=== PATIENT | male | born 1965 | race Caucasian/White ===

== ENCOUNTER 2021-06-21 10:51 | Inpatient (IN) | payer OTHER ==
[2021-06-21] MEDS ORDERED: METHOCARBAMOL 500 MG TABLET PO PRN (11:37)
[2021-06-21] MEDS ORDERED: LORazepam 1 MG TABLET PO PRN (11:37)
[2021-06-21] MEDS ORDERED: MAGNESIUM CITRATE 300 ML BOTTLE PO PRN (11:37)
[2021-06-21] MEDS ORDERED: ACETAMINOPHEN 325 MG TABLET (FP) PO PRN ×2 (11:37)
[2021-06-21] MEDS ORDERED: BISMUTH SUBSALICYLATE 262 MG/15 ML BTL PO PRN (11:37)
[2021-06-21] MEDS ORDERED: MAG HYDROX/AL HYDROX/SIMETH 30 ML UNIT-DOSE CUP PO PRN (11:37)
[2021-06-21] MEDS ORDERED: MENTHOL/PHENOL 1 EACH UD MM PRN (11:37)
[2021-06-21] MEDS ORDERED: ONDANSETRON *ODT* 4 MG TABLET SL PRN (11:37)
[2021-06-21] MEDS ORDERED: IBUPROFEN 400 MG TABLET (FP) PO PRN (11:37)
[2021-06-21] MEDS ORDERED: LOPERAMIDE HCL 2 MG CAPSULE PO PRN (11:37)
[2021-06-21] MEDS ORDERED: MAGNESIUM HYDROX 2400MG/30ML ORAL SUSPENSION 30 ML CUP PO PRN (11:37)
[2021-06-21] MEDS ORDERED: NICOTINE 10 MG CARTRIDGE (INHALER) IH PRN (11:37)
[2021-06-21] MEDS ORDERED: NICOTINE 14 MG/24 HOURS TOPICAL PATCH TD SCH (11:45)
[2021-06-21] MEDS ORDERED: PRENATAL VITAMINS W/ FOLIC ACID TABLET (FP) PO SCH (11:45)
[2021-06-21 11:58] VITALS: BMI 19.7
[2021-06-21] MEDS: LORazepam 2 MG TABLET PO SCH ×3 (12:59→23:52)
[2021-06-21 13:42] LABS: HEMATOCRIT 37.2 % (35.4-49); HEMOGLOBIN 12.4 GM/dL (11.7-16.9); MCH 31.6 pg (25.7-33.7); MCHC 33.4 g/dl (32.0-35.9); MEAN CELL VOLUME 94.5 fl (80-96); PLATELET COUNT 150 10^3/uL (134-434); RBC 3.93 M/mm3 (4.00-5.60); RDW 12.5 % (11.9-15.9); WHITE BLOOD COUNT 4.5 K/mm3 (4.0-10.0)
[2021-06-21] MEDS: hydrOXYzine PAMOATE 25 MG CAPSULE (FP) PO SCH ×3 (13:46→23:20)
[2021-06-21 13:57] LABS: ALBUMIN 3.7 g/dl (3.4-5.0)
[2021-06-21 13:58] LABS: BLOOD UREA NITROGEN 10.1 mg/dL (7-18)
[2021-06-21 13:59] LABS: CALCIUM 9.6 mg/dL (8.5-10.1)
[2021-06-21 14:02] LABS: TOT PROT 8.2 g/dl (6.4-8.2)
[2021-06-21 14:05] LABS: BILIRUBIN,TOTAL 0.6 mg/dL (0.2-1)
[2021-06-21] MEDS ORDERED: COLLOIDAL OATMEAL 1 BAR EACH TP PRN (17:22)
[2021-06-21] MEDS ORDERED: KETOCONAZOLE 2 % SHAMPOO 120 ML BOTTLE TP SCH (17:30)
[2021-06-21 21:14] VITALS: BP 118/76; PULSE 83; TEMP 98.6
[2021-06-21] MEDS ORDERED: THIAMINE HCL 100 MG TABLET (FP) PO SCH (22:00)
[2021-06-21] MEDS ORDERED: MELATONIN 5 MG TABLETS PO SCH (22:00)
[2021-06-23] MEDS ORDERED: LORazepam 1 MG TABLET PO SCH (05:00)
[2021-06-24] MEDS ORDERED: LORazepam 0.5 MG TABLET PO PRN
[2021-06-24] MEDS ORDERED: LORazepam 0.5 MG TABLET PO SCH (05:00)
[2021-06-25] MEDS ORDERED: LORazepam 0.5 MG TABLET PO ONE (05:00)
== END 2021-06-22 01:48 | disposition left against medical advice (07) | DRG 770 ==
LOC: YASAS 10:51 → Y6N 12:14
PROVIDERS: ADMIT Allergy & Immunology; ATTEND Allergy & Immunology
PROC: HZ2ZZZZ Detoxification Services for Substance Abuse Treatment (ICD-10-PCS; principal; 2021-06-21)
DX: F10.230 Alcohol dependence with withdrawal, uncomplicated (principal); F14.20 Cocaine dependence, uncomplicated; F12.20 Cannabis dependence, uncomplicated; F17.210 Nicotine dependence, cigarettes, uncomplicated; F31.9 Bipolar disorder, unspecified; F20.9 Schizophrenia, unspecified; Z21 Asymptomatic human immunodeficiency virus [HIV] infection status; I10 Essential (primary) hypertension; K76.0 Fatty (change of) liver, not elsewhere classified; Z86.19 Personal history of other infectious and parasitic diseases; Z59.01 Sheltered homelessness
CPT/HCPCS: 36415; 80053; 85027; 86780; C9803; U0003; U0005

== ENCOUNTER 2024-02-17 21:09 | Emergency (ER) | payer OTHER ==
[2024-02-17 21:15] VITALS: TEMP 98.7; BMI 23.3
[2024-02-17] MEDS ORDERED: ASPIRIN 81 MG CHEWABLE TABLETS ONE (21:29)
[2024-02-17] MEDS: ASPIRIN 81 MG CHEWABLE TABLETS PO ONE (21:47)
[2024-02-17] MEDS ORDERED: THIAMINE HCL 200 MG/2 ML VIAL ONE (21:49)
[2024-02-17 21:50] LABS: BASO % 0.5 % (0-2.0); EOS % 1.7 % (0-4.5); HEMATOCRIT 28.1 % (35.4-49); HEMOGLOBIN 9.3 GM/dL (11.7-16.9); LYMPH % 15.3 % (8-40); MCH 31.1 pg (25.7-33.7); MCHC 33.2 g/dl (32.0-35.9); MEAN CELL VOLUME 93.9 fl (80-96); MEAN PLT VOLUME 7.3 fl (7.5-11.1); MONO % 7.7 % (3.8-10.2); NEUT % 74.8 % (42.8-82.8); PLATELET COUNT 291 10^3/uL (134-434); RBC 2.99 M/mm3 (4.00-5.60); RDW 19.1 % (11.9-15.9); WHITE BLOOD COUNT 8.7 K/mm3 (4.0-10.0)
[2024-02-17] MEDS ORDERED: ONDANSETRON *ODT* 4 MG TABLET ONE (21:50)
[2024-02-17 21:58] LABS: INR 1.04 (0.83-1.09)
[2024-02-17 22:00] LABS: ACTIVATED PTT 30.7 SECONDS (25.2-36.5)
[2024-02-17] MEDS: ONDANSETRON *ODT* 4 MG TABLET SL ONE (22:06)
[2024-02-17] MEDS: THIAMINE HCL 200 MG/2 ML VIAL IVPB ONE (22:06)
[2024-02-17 22:08] LABS: CHLORIDE 110 mmol/L (98-107); POTASSIUM 3.8 mmol/L (3.5-5.1); SODIUM 140 mmol/L (136-145)
[2024-02-17 22:10] LABS: CALCIUM 8.5 mg/dL (8.5-10.1)
[2024-02-17 22:11] LABS: ALBUMIN 3.2 g/dl (3.4-5.0); ANION GAP 4 mmol/L (4-13); BLOOD UREA NITROGEN 25.8 mg/dL (7-18); CO2 26 mmol/L (21-32); GLUCOSE,RANDOM 100 mg/dL (74-106); MAGNESIUM 1.7 mg/dL (1.8-2.4)
[2024-02-17 22:14] LABS: CREATININE 1.2 mg/dL (0.55-1.3); SGOT/AST 32 U/L (15-37); SGPT/ALT 44 U/L (13-61)
[2024-02-17 22:15] LABS: BILIRUBIN,TOTAL 0.2 mg/dL (0.2-1)
[2024-02-17 22:17] LABS: ALK PHOS 150 U/L (45-117); PHOSPHOROUS 1.1 mg/dL (2.5-4.9)
[2024-02-17] MEDS: POTASSIUM PHOSPHATE 30 MM in SODIUM CHLORIDE 500 ML IVPB ONE (22:22)
[2024-02-17] MEDS ORDERED: MAGNESIUM SULFATE IN WATER 2 GM/50 ML IVPB IVPB ONE (22:23)
[2024-02-17] MEDS ORDERED: NAPH,MB-DB/K PH,MBDB POWDER PACKET ONE (22:23)
[2024-02-17] MEDS: NAPH,MB-DB/K PH,MBDB POWDER PACKET PO ONE (22:31)
[2024-02-17] MEDS: MAGNESIUM SULFATE IN WATER 2 GM/50 ML IVPB IVPB ONE (22:32)
[2024-02-18 01:20] VITALS: BP 151/94; PULSE 86; RESP 20
== END 2024-02-18 01:21 | disposition home or self-care (01) ==
LOC: JER 21:09
PROC: 3E033GC Introduction of Other Therapeutic Substance into Peripheral Vein, Percutaneous Approach (ICD-10-PCS; principal; 2024-02-17)
PROC: 3E033GC Introduction of Other Therapeutic Substance into Peripheral Vein, Percutaneous Approach (ICD-10-PCS; 2024-02-17)
DX: R07.89 Other chest pain (principal); R11.10 Vomiting, unspecified
CPT/HCPCS: 36415; 71045-TC-FY; 80053; 83735; 84100; 84484; 85025; 85610; 85730; 93005; 93010; 99285-25; Q0162